=== PATIENT | female | born 1965 | race Caucasian/White ===

== ENCOUNTER 2022-10-15 01:43 | Emergency (ER) | payer MEDICARE, MEDICAID, SELFPAY ==
--- NOTE | ~2022-10-15 | CT_ITS ---
EXAMINATION: CT brain wo con DATE: 10/15/2022 04:06 INDICATION: Loss of consciousness. TECHNIQUE: Computed tomography (CT) of the head was performed without intravenous contrast. The mA wa s adjusted according to patient size. Iterative reconstruction technique was employed. The dose-lengt h product was 681.00 mGy-cm. COMPARISON: None FINDINGS: There is an infarct in the left frontoparietal region and left insula. There is an old [place] infarct in the left basal ganglia. There is no intracranial hemorrhage or abnormal mass lesion. T here are scattered areas of low attenuation in the cerebral white matter, which is within normal limi ts for the patient's age. The ventricles are normal in size. There is mucosal thickening in the paran madi sinuses. The orbits are normal. There is a small left mastoid effusion. IMPRESSION: 1. Age-indeterminate infarct involving the left frontoparietal region and left insula. 2. Old lacunar infarct in left basal ganglia. Reviewed, dictated and finalized at location A.
--- NOTE | ~2022-10-15 | XR_ITS ---
EXAMINATION: XR chest 1V portable DATE: 10/15/2022 03:52 INDICATION: Lethargy. Overdose. TECHNIQUE: A single frontal view of the chest was obtained. COMPARISON: Chest single view at 02/18/2019 FINDINGS: The patient is rotated to her left. There is mild atelectasis in the lower lung zones. No p leural effusion or pneumothorax. The heart size is normal. There are surgical changes in cervical spi ne. IMPRESSION: 1. Mild atelectasis in the lower lung zones. Reviewed, dictated and finalized at location A.
[2022-10-15 01:43] VITALS: BP 148/67; PULSE 52; RESP 14; TEMP 36.4; O2SAT 99
--- NOTE | 2022-10-15 01:54 | ECG_ITS ---
Measurements Intervals [place] Rate: 50 P: 41 MT: 170 QRS: 56 QRSD: 89 T: 53 QT: 444 QTc: 405 Interpretive Statements SINUS BRADYCARDIA NO PREVIOUS ECG AVAILABLE FOR COMPARISON Electronically Signed On 10-15-2022 11:21:38 CDT by Nicolás Mauricio M.D.
[2022-10-15 01:57] VITALS: RESP 13
[2022-10-15 03:15] VITALS: BP 144/87; PULSE 56; RESP 14; O2SAT 95
[2022-10-15 05:07] LABS: Basophils Percent Auto 0.3 % (0.2-1.2); Eosinophils Percent Auto 0.2 % (0-4.4); Hematocrit 37.3 % (37.0-47.0); Hemoglobin 11.8 g/dL (12.0-15.0); Immature Granulocyte Absolute 0.06 K/mm3 (0.00-0.031); Immature Granulocyte Percent A 0.4 % (0-0.5); Lymphocytes Absolute Auto 0.92 K/mm3 (0.9-3.2); Lymphocytes Percent Auto 6.3 % (18.3-44.2); Mean Corpuscular HGB Conc 31.6 g/dl (32-36); Mean Corpuscular Hemoglobin 30.9 pg (26-34); Mean Corpuscular Volume 97.6 fl (80-100); Mean Platelet Volume 11.7 fl (7.4-10.4); Monocytes Absolute Auto 0.8 K/mm3 (0.1-0.6); Monocytes Percent Auto 5.7 % (2.6-8.5); Neutrophils Absolute Auto 12.7 K/mm3 (1.3-6.7); Neutrophils Percent Auto 87.1 % (45.5-73.1); Platelet Count Result 257 k/mm3 (150-375); Red Blood Count 3.82 M/mm3 (4.2-5.4); Red Cell Distribution Width 12.9 % (11.5-14.5); White Blood Count 14.6 K/mm3 (4.5-10.0)
[2022-10-15] MEDS: SODIUM CHLORIDE 0.9% IV 1,000 ML 999 ML IV CONT (05:11)
[2022-10-15 05:14] LABS: Ethanol < 10 mg/dL (<10)
[2022-10-15 05:15] LABS: Lactic Acid Reflex 0.8 mmol/L (0.7-2.0)
[2022-10-15 05:17] LABS: Lipase 86 U/L (23-300); Magnesium 1.8 mg/dL (1.6-2.3)
[2022-10-15 05:19] LABS: Alanine Aminotransferase 52 U/L (6-35); Albumin Level 4.1 g/dL (3.5-5.1); Alkaline Phosphatase 111 U/L (38-126); Anion Gap 5 mmol/L (8-16); Aspartate Amino Transferase 73 U/L (14-36); Bilirubin,Total 0.5 mg/dL (0.2-1.3); Blood Urea Nitrogen 14 mg/dL (7-17); Calcium 8.6 mg/dL (8.4-10.2); Carbon Dioxide 26 mmol/L (22-30); Chloride 105 mmol/L (98-107); Estimated CRCL calculation 96 ml/min; Estimated Glomerular Filt Rate > 60; Glucose 108 mg/dL (65-110); Potassium 3.7 mmol/L (3.4-5.0); Sodium 136 mmol/L (137-145)
[2022-10-15 05:20] LABS: Acetaminophen < 10 ug/mL (10-30)
[2022-10-15 05:25] LABS: Amphetamine Screen Urine Negative (Negative); Barbiturate Screen Urine Negative (Negative); Benzodiazepines Screen Urine Negative (Negative); Cannabinoid Screen Urine Positive (Negative); Cocaine Screen Urine Negative (Negative); Methadone Screen Urine Negative (Negative); Opiate Screen Urine Negative (Negative); Phencyclidine Screen Urine Negative (Negative)
[2022-10-15 05:26] LABS: Add Urine Microscopic? YES; Appearance Urine Cloudy (Clear); Bacteria Urine Rare /hpf; Bilirubin Urine 1+ (Negative); Blood Urine Negative (Negative); Color Urine Dark Yellow (Yellow); Glucose Urine UA Negative (Negative); Hyaline Casts Urine Present /lpf; Ketones Urine Negative (Negative); Leukocyte Esterase Ur Negative LEU/UL (Negative); Mucus Urine Present /lpf; Nitrate Urine Negative (Negative); Non Pathogenic Casts >20; Protein Urine 1+ mg/dL (Negative); Specific Grav Ur 1.023 (1.001-1.035); Squamous Epithelial Cell Urine Few /hpf (Few); WBC Urine 0-5 /hpf; pH Urine 5.5 (5.0-9.0)
[2022-10-15 05:27] LABS: Creatine Kinase 77 U/L (30-135); Prothrombin Time 13.7 Seconds (11.1-14.7)
[2022-10-15 05:28] LABS: Partial Thromboplastin Time 26.7 SECONDS (22.3-36.8); Troponin I < 0.012 ng/mL (0.000-0.034)
--- NOTE | 2022-10-15 05:45 | ED.GENADULT ---
HPI - General Adult General Chief complaint: Overdose Stated complaint: dizzy, N/V Time Seen by Provider: 10/15/22 03:31 History of Present Illness HPI narrative: This is a 57-year-old female presenting ED for a possible overdose. Patient had friends overhead her house for dinner. After they left the patient's found her slumped over at the table and was unable to wake her. EMS was then called the patient was given 1 mg of intranasal Narcan which revived her. Patient herself does not have any complaints at this time. Patient believes that she may have taken an extra [place] but she is unsure. Patient notes that she was very tired from entertaining all day. She denies tongue biting or loss of continence. She denies history of seizures.Patient denies use of drugs or alcohol. she denies suicidal ideation or any type of intentional overdose. Related Data Home Medications Medication Instructions Recorded Confirmed aspirin 81 mg tablet,delayed 81 mg PO DAILY 02/01/22 release citalopram 20 mg tablet 20 mg PO DAILY 02/01/22 levothyroxine 200 mcg tablet 200 mcg PO DAILY 02/01/22 (Euthyrox) paroxetine HCl 40 mg tablet 40 mg PO DAILY 02/01/22 Allergies Allergy/AdvReac Type Severity Reaction Status Date / Time No Known Allergies Allergy Verified 10/15/22 06:10 [facility] Past Medical History Medical History Anxiety Arthritis Fibromyalgia Headache Hypertension Hypothyroid Osteoporosis PTSD (post-traumatic stress disorder) Stroke Surgical History Surgical History H/O spinal fusion (~2016) H/O thyroidectomy (~2017) H/O: hysterectomy History of appendectomy Hx of cholecystectomy Stented coronary artery (~2019) Family History Family History Mother Heart disease Anxiety Cancer Father Cancer Diabetes mellitus Hypertension Depression Heart disease Cerebrovascular accident Thyroid disorder Social History Social History Smoking status: Never smoker Alcohol intake: never Substance use: current Substance use type: marijuana Exam Narrative: APPEARANCE: No apparent distress. pleasent/polite Head: atraumatic. EYES: EOMI, pupils are referral NOSE: Atraumatic NECK: Trachea midline RESPIRATORY: No increased rate of breathing clear to auscultation CARDIOVASCULAR: RRR, ABDOMINAL: Non-distended MUSCULOSKELETAl: No obvious deformities NEURO: Alert. Mild dysphagia, Cranial nerves 2-12 grossly intact. Sensation light touch, motor function cerebellar function intact for 4 extremities. SKIN:: Warm, dry. Normal color PSYCHIATRIC: Normal affect Course Vital Signs Vital signs: Vital Signs Temperature 97.6 F 10/15/22 01:43 Pulse Rate 52 L 10/15/22 01:43 Respiratory Rate 14 10/15/22 01:43 Blood Pressure 148/67 H 10/15/22 01:43 Pulse Oximetry 99 10/15/22 01:43 Oxygen Delivery Room Air 10/15/22 01:43 Temperature 97.6 F 10/15/22 01:43 Pulse Rate 72 10/15/22 06:11 Respiratory Rate 17 10/15/22 06:11 Blood Pressure 114/66 10/15/22 06:11 Pulse Oximetry 96 10/15/22 06:11 Oxygen Delivery Room Air 10/15/22 01:43 Medical Decision Making [facility] Narrative Medical decision making narrative: -Presentation: 57-year-old female history of CVA presenting after a brief loss of consciousness. This time the patient has no complaints and no findings on physical exam. Broad workup was ordered which was significant for cannabinoids in the urine drug screen but otherwise negative. At this time we do not have a cause of the patient's loss of conscious. She was offered admission for further evaluation and has declined. Patient has been given return precautions. -DDX includes but is not limited to: Syncope, seizure, overdose, alcohol intox
[2022-10-15 06:11] VITALS: BP 114/66; PULSE 72; RESP 17; O2SAT 96
[2022-10-15 06:34] VITALS: BP 107/75; PULSE 81; RESP 12; O2SAT 96
== END 2022-10-15 07:02 | disposition home or self-care (01) ==
PROVIDERS: Emergency Provider Emergency Medicine; PCP Internal Medicine Gastroenterology
DX: R55 Syncope and collapse (principal); I10 Essential (primary) hypertension; E03.9 Hypothyroidism, unspecified; F12.90 Cannabis use, unspecified, uncomplicated
CPT/HCPCS: 36415; 70450; 71045; 80053; 80307; 81001; 82550; 83605; 83690; 83735; 84100; 84484; 85025; 85610; 85730; 93005; 96360; 99284; J7030